=== PATIENT | female | born 1990 | race Caucasian/White ===

== ENCOUNTER 2020-07-04 20:32 | Emergency (ER) | payer BC, OTHER ==
[~2020-07-04] VITALS: Ht 162.6 cm; Wt 93.6 kg
--- NOTE | 2020-07-04 21:10 | NUR ---
review nurse completed. Orders reviewd.
[2020-07-04] MEDS ORDERED: METHYLNALTREXONE 12 MG/0.6 ML SYR SQ ONE ×2 (21:18→21:30)
--- NOTE | 2020-07-04 21:24 | NUR ---
Relistor given with aseptic technique with pain verbalized during initial injection and then c/o burning at site afterwards by pt. Site appears benign, cleansed with alcohol wipe a second time with no bleeding noted, and verbal comfort measures provided. Lab draw completed just before medical artist.
[2020-07-04 21:33] LABS: BASOPHILS % (AUTO) 1 % (0-1); EOSINOPHILS % (AUTO) 2 % (1-7); LYMPHOCYTES % (AUTO) 32 % (22-44); MEAN CORPUSCULAR HEMOGLOBIN 29.4 pg (27.0-34.8); MEAN CORPUSCULAR HGB CONC 33.3 g/dL (32.4-35.8); MONOCYTES % (AUTO) 10 % (2-9); NEUTROPHILS % (AUTO) 56 % (42-75); PLATELET COUNT 237 x10^3/uL (130-400); RED CELL DISTRIBUTION WIDTH 13.3 % (9.6-15.2)
[2020-07-04 21:34] LABS: MD NO
[2020-07-04 21:38] LABS: ALANINE AMINOTRANSFERASE 157 U/L (12-78); ANION GAP 4 mmol/L (5-15); CALCIUM 8.5 mg/dL (8.5-10.1); CHLORIDE 107 mmol/L (98-107)
[2020-07-04 21:41] LABS: ALKALINE PHOSPHATASE 168 U/L (45-117); BILIRUBIN,TOTAL 0.3 mg/dL (0.2-1.0); TOTAL PROTEIN 7.2 g/dL (6.4-8.2)
--- NOTE | 2020-07-04 21:42 | NUR ---
Lab results reviewed and chart marked for recheck by .
--- NOTE | 2020-07-04 21:56 | NUR ---
Pt up to use restroom and use phone to call boyfriend while awaiting recheck by .
--- NOTE | 2020-07-04 22:02 | NUR ---
MD at bedside for discussion of results and plan of care. Noted pt is marked for d/c to home. Awaiting paperwork.
[2020-07-04 22:59] VITALS: BP 132/73
== END 2020-07-04 23:03 | disposition home or self-care (01) ==
LOC: ED 22:52
DX: K62.5 Hemorrhage of anus and rectum (principal); K59.00 Constipation, unspecified; R94.5 Abnormal results of liver function studies; F17.210 Nicotine dependence, cigarettes, uncomplicated
CPT/HCPCS: 36415; 80053; 85025; 96372; 99283